=== PATIENT | female | born 1940 | race Caucasian/White ===

== ENCOUNTER 2016-08-24 11:27 | Inpatient (IN) | payer MEDICARE, OTHER, MEDICAID ==
[~2016-08-24] VITALS: Ht 165.1 cm; Wt 66.8 kg
--- NOTE | ~2016-08-24 | CO ---
ADMIT: 08/24/2016 RM/LOC: 432 [facility] MR#: [id number] [address] [place], [place] [address] ANGEL ADRIAN M [address] [place] [address] Consultation Report SEX: F AGE: 75 : 1940 DATE OF CONSULTATION: 09/15/2016 ATTENDING PHYSICIAN: Li Son MD CONSULTING PHYSICIAN: Destin Damon MD ADDENDUM: You can see full dictated consult by Edilson Hooper, my PA. She is a pleasant 75-year-old female, who actually was admitted I think more for some respiratory type issues, but over the last few days, has had some nausea and dry heaves. 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 History of G- tube in place for chronic nourishment, esophageal strictures in the past that have required dilation. At this point, we were asked to see her for an EGD. Have discussed that all with her, she understands and has had multiple EGDs and wishes to proceed. Her exam otherwise shows her abdomen is soft, minimal diffuse tenderness. G-tube intact, looks fine without any issues or problems. ASSESSMENT AND PLAN: At this time, she will undergo an EGD by myself or one of the partners as I will be out of town in the morning, depends on who can get to it and when. Destin Damon MD/ dorinal JOB #: [id number] CC: Li Son MD, Attending Physician Li Son MD, Family Physician
[~2016-08-24 11:27] MED LIST: CYMBALTA60 MG PO; FIBER625 MG PO; LISINOPRIL20 MG PO; NEURONTIN300 MG PO; NORMAL SALINE FL5 ML IV; NORVASC2.5 MG PO; OCEAN NASAL MIS45 ML NS; PRILOSEC OTC20 MG PO; REGLAN10 MG PO; SENOKOT S1 TAB PO; SODIUM CHLORID250 ML IV
--- NOTE | 2016-09-18 09:57 | OR ---
ADMIT: 08/24/2016 RM/LOC: 432 [facility]#: [id number] [id number] [address] [facility] [address] [place] [address] ANGEL ADRIAN M [address] [place] [address] Operative/Delivery Room Report SEX: F AGE: 75 : 1940 SURGERY DATE: 09/16/2016 SURGEON: Romulo López MD PREOPERATIVE DIAGNOSIS: Dysphagia with esophageal stricture. POSTOPERATIVE DIAGNOSIS: Esophagogastrostomy, anastomotic stricture. PROCEDURE: Esophagogastroduodenoscopy with 15 mm balloon dilatation of the anastomotic stricture. ANESTHESIA: IV general. DESCRIPTION OF PROCEDURE: The patient was taken to the endoscopy suite and placed left side down on her hospital cart. IV sedation was established. The upper endoscope was advanced through the oropharynx into the esophagus without difficulty. The scope was pushed to the distal esophagus, where the anastomosis was visualized. There was significant narrowing at this level. I was able to gently advance the scope across the anastomosis into the gastric remnant. The duodenum was also advanced to and inspected and appeared normal. The gastrostomy tube balloon was in place in the stomach. The scope was withdrawn to the anastomosis. A dilating balloon was advanced across the strictured area and insufflated to 880 m, Which provided an 18 mm dilation. The balloon was held in place for 1 minute and deflated. On inspection, there was no evidence of perforation with wider patency of the stricture. The scope and balloon were withdrawn. The remainder of the esophageal mucosa appeared normal. The patient tolerated the procedure well and transferred to the recovery area in stable condition. Romulo López MD/ danita JOB #: [id number] CC: Li Son MD, Attending Physician Li Son MD, Family Physician
[2016-09-18] MEDS ORDERED: CARVEDILOL25 MG PO (14:09)
[2016-09-18] MEDS ORDERED: CYMBALTA30 MG PO (14:09)
[2016-09-18] MEDS ORDERED: CATAPRES-DPS0.1 MG PO (14:09)
[2016-09-18] MEDS ORDERED: NEURONTIN100 MG PO (14:10)
[2016-09-18] MEDS ORDERED: NEURONTIN DPS100 MG PO (14:10)
[2016-09-18] MEDS ORDERED: REMERON30 M1 PO (14:11)
[2016-09-18] MEDS ORDERED: PEPCID DPS20 MG PO (14:12)
[2016-09-18] MEDS ORDERED: NORVASC5 MG PO (14:12)
[2016-09-18] MEDS ORDERED: PROVENTIL2.5 MG/3 M IH (14:12)
[2016-09-18] MEDS ORDERED: PERCOCET 5-3251 EACH PO (14:13)
[2016-09-18] MEDS ORDERED: LORAZEPAM0.5 MG PO (14:13)
[2016-09-18] MEDS ORDERED: ZYRTEC DPS10 MG PO (14:14)
[2016-09-18] MEDS ORDERED: ZOFRAN ODT8 MG PO (14:14)
[2016-09-18] MEDS ORDERED: REGLAN10 MG PO (14:14)
[2016-09-18] MEDS ORDERED: TYLENOL325 MG PO (14:15)
[2016-09-18] MEDS ORDERED: VITAMIN D50000 UNIT PO (14:16)
[2016-09-18] MEDS ORDERED: WELCHOL625 MG PO (14:16)
[2016-09-18] MEDS ORDERED: FUROSEMIDE20 MG PO (14:16)
[2016-09-18] MEDS ORDERED: HYOSCYAMIN0.125 MG/M SL (14:17)
[2016-09-18] MEDS ORDERED: IMODIUM DPS2 MG PO (14:17)
--- NOTE | 2016-10-12 01:12 | DS ---
ADMIT: 08/24/2016 RM/LOC: 432 [facility] MR#: [id number] [address] [facility] [address] [place], [place] [address] JAZMIN ADRIAN [address] [place] [address] Discharge Summary SEX: F AGE: 75 : 1940 ADMISSION DATE: 08/24/2016 DISCHARGE DATE: 09/17/2016 DIAGNOSES: 1. Influenza A. 2. Hypertension. 3. Esophageal stricture. 4. Neuropathic pain syndrome-abdominal. 5. Gastroesophageal reflux disease. 6. Malnutrition with jejunostomy in place. 7. Depression. 8. Diabetes. 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 10.Weakness. 11.Diarrhea. 12.Renal insufficiency. 13.Hyperkalemia. 14.Thrombocytopenia with platelets of 79 today. 15.Anemia of chronic disease. 16.Bilateral pneumonia, NOS (not otherwise specified). 17.Nausea. 18.Delirium-transient. CONSULT: Surgery. PROCEDURE: EGD with dilation 09/16/2016. LABORATORY AND X-RAY DATA: Sodium 146 down to 140, potassium 4.8 up to 5.9, final value was 5.5, chloride 108, CO2 is 26, BUN 47, creatinine 2.2, which is pretty stable for her. Sugars are variable, see chart. Total bilirubin was 0.5, total protein 4.9, albumin 2.3, alkaline phosphatase 63, AST 13. Sugars are variable, see chart. White count 8.4, hemoglobin 10.3, platelet count on admission 270, hovered around those numbers and then on 09/12/2016 decreased to 96 with final value of 79. Chest x-ray showed new prominent patchy interstitial markings throughout both lungs consistent with probable pneumonia and a possible edema component. Follow up chest x-rays similar. Final chest x-ray was negative with improved aeration. COURSE IN HOSPITAL: Jazmin was admitted from the clinic pretty miserable. She was found to have an acute episode of influenza A. She was admitted, placed in isolation, given fluids and started on Tamiflu. She was quite weak. Therapy was started to try and keep her strong enough to return home once she improved. We did continue her Jevity. Her blood pressure was a little elevated. As needed clonidine was ordered. Renal function was noted to be diminished but this was stable for her. We continued with the Tamiflu for the five day course. She had been getting her tube feedings but those were actually held intermittently because of nausea and it began to develop. Much like her old issues. Her cough continued and seemed to progress. Concern about a post influenza pneumonia was entertained. We did start some Rocephin ADMIT: 08/24/2016 RM/LOC: 432 [facility] MR#: [id number] [address] [address] JAZMIN ADRIAN [address] [place] [address] Discharge Summary SEX: F AGE: 75 : 1940 and Solu-Medrol for her bronchospasm. This did improve things quite a bit. We are getting close to being able to dismiss. Then she started to have abdominal pain with cramping and diarrhea. Welchol was added to help with her diarrhea but also was beneficial for her diabetes and her cholesterol issues. This did seem to help a little bit. Her Solu-Medrol was decreased. She continued with the therapies. We started up on low-dose aspirin. With the progression, she began having increasing difficulties. Could not keep any of her medications down. We stopped the Rocephin, changed it to Levaquin because her cough remained quite loose. Had all of her medications adjusted and decreased his Cymbalta and Neurontin just a slight amount to see if that would help as sometimes it needs to be done. We kept her on Pepcid for her reflux type symptoms. Nausea was a little bit better. Then she started having more abdominal pain. We did have Surgery come by and see her. We hope not to have to do any surgical interventions. We did do some bowel rest. After she seemed to be doing a little bit better restarted tube feedings. I did go ahead and have her have an EGD since her last one was a long enough time ago. We did and an EGD was performed and she was found to have a stricture. This was dilated. I wonder if this is part of the abdominal pain and the belching and the production of a lot of sputum. Hopefully things will improve. On today's rounds, she was anxious to go home. She has not been up that much and she is still pretty weak. We will have her go to [facility] if there is a bed. She was finally at a point where she was felt able to go home but will need close followup. I am a little concerned about her going home since she really has not been up and has been refusing therapy of late. For this reason, we will see how she does this morning and if she does okay she could go home with home health but I doubt that is an option. Instead, she will probably go home later this afternoon to [facility] for temporary placement for strengthening. DISCHARGE MEDICATIONS: Discharge medications include: 1. Jevity 1.2 at 50 mL an hour with flushes. 2. Clonidine 0.1 b.i.d. 3. Coreg 25 b.i.d. 4. Cymbalta 30 mg at bedtime. 5. Neurontin 100 in the morning and two in the evening. 6. Norvasc 5 mg daily. 7. Pepcid 20 p.o. b.i.d. 8. Remeron 30 mg at bedtime. 9. Proventil MDI q.i.d. for 3 days and then q.6h p.r.n. 10.Tylenol 650 q.4h p.r.n. ADMIT: 08/24/2016 RM/LOC: 432 [facility] MR#: [id number] [address] [place] [address] [address] [place], [place] [address] JAZMIN ADRIAN M [address] [place] [address] Discharge Summary SEX: F AGE: 75 : 1940 11.Zyrtec 10 mg daily p.r.n. 12.Welchol 625 daily p.r.n. 13.Vitamin D2 50,000 international units weekly. 14.Lasix 20 mg daily. 15.NuLev 0.125 q.4h p.r.n. 16.Lomotil 2 mg t.i.d. p.r.n. 17.Percocet 5/325 one q.4h p.r.n. 18.Zofran 8 mg q6h p.r.n. DISCHARGE INSTRUCTIONS: She will see me in 2-3 weeks. Otherwise, she will do with physical therapy, etc. I am hopeful she will do well and be able to return home. Overall prognosis is good. Time spent 55 minutes. Li Son MD/ vdg JOB #: [id number] CC: Li Son MD, Attending Physician Li Son MD, Family Physician
--- NOTE | 2016-10-17 12:05 | CO ---
ADMIT: 08/24/2016 RM/LOC: 432 [facility] MR#: [id number] 2620 [facility] [address] [place], [place] [address] JAZMIN ADRIAN [address] [place] [address] Consultation SEX: F AGE: 75 : 1940 DATE OF CONSULTATION: 09/15/2016 ATTENDING PHYSICIAN: Li Son MD CONSULTING PHYSICIAN: Destin Damon MD REASON FOR CONSULTATION: Nausea. HISTORY OF PRESENT ILLNESS: Jazmin is a very pleasant 75-year-old female, who has been admitted to the hospital for upper respiratory infection, who just in the last few days has developed some nausea with dry heaves. She does have a history of GIST, status post resection, and has had numerous EGDs in the past. She currently denies any emesis, hematemesis, dark or bloody stools, diarrhea or constipation or abdominal pain. She does have a G-tube in place for nourishment. She has had esophageal strictures in the past requiring dilatation at the resection site. PAST MEDICAL HISTORY: Significant for: 1. Hiatal hernia. 2. Hypertension. 3. Type 2 diabetes. 4. Mitral regurgitation. 5. Depression. 6. Malnutrition. PAST SURGICAL HISTORY: Please see above. ALLERGIES: TAPE, MORPHINE, CODEINE, AND SULFA. MEDICATIONS: Well documented in chart. FAMILY HISTORY: Noncontributory. SOCIAL HISTORY: The patient denies any tobacco, alcohol, or illicit drug use. REVIEW OF SYSTEMS: CONSTITUTIONAL: The patient denies any fever, chills, or night sweats. The rest of a comprehensive 10-point review of systems was performed and all other systems are negative. PHYSICAL EXAMINATION: GENERAL: The patient is in no acute distress. However, she is ill appearing. HEENT: Head is normocephalic and atraumatic. EOMS are intact. Conjunctivae free of icterus, erythema, or pallor. Pinnae, free of deformities. Nose, midline. No tracheal deviation. NECK: Supple. SKIN: Negative for jaundice, clubbing, edema, pallor, cyanosis. LUNGS: Normal respiratory effort. HEART: Distal pulses intact. Regular rate and rhythm. ABDOMEN: Soft, nondistended, mildly tender. G-tube intact with G-tube site ADMIT: 08/24/2016 RM/LOC: 432 [facility] MR#: [id number] [address] [address] JAZMIN ADRIAN [address] [place] [address] Consultation SEX: F AGE: 75 : 1940 free of any drainage or bleeding. Currently receiving tube feeds. ASSESSMENT: Nausea. PLAN: The plan is to have the patient undergo EGD performed by Dr. Damon or one of the other providers tomorrow as Dr. Damon is out of town in the morning. I discussed the risks, alternatives, benefits, and complications of EGD with the patient and her relative who is present during my whole assessment. They are in agreement of this plan, had all their questions answered, and would like to proceed. I will get her on the schedule consented and will go from there. Thanks for the consultation of this patient. JIMMY Farrell / Destin Damon MD / danita JOB #: [id number] CC: Li Son MD, Attending Physician Li Son MD, Family Physician
== END 2016-09-17 14:33 | DRG 194 ==
LOC: WOR 11:27 → 4PCU 11:27 → 3ICU 11:27 → WOR 12:16 → 3ICU 14:24 → 4PCU 08-25 08:49
PROVIDERS: ADMIT Internal Medicine
PROC: 0D2DXUZ Change Feeding Device in Lower Intestinal Tract, External Approach (ICD-10-PCS; 2016-08-27)
PROC: 0D738ZZ Dilation of Lower Esophagus, Via Natural or Artificial Opening Endoscopic (ICD-10-PCS; principal; 2016-09-16)
DX: J10.00 Influenza due to other identified influenza virus with unspecified type of pneumonia (principal); N17.9 Acute kidney failure, unspecified; E44.0 Moderate protein-calorie malnutrition; F05 Delirium due to known physiological condition; E11.40 Type 2 diabetes mellitus with diabetic neuropathy, unspecified; K31.84 Gastroparesis; E11.22 Type 2 diabetes mellitus with diabetic chronic kidney disease; D69.6 Thrombocytopenia, unspecified; K94.23 Gastrostomy malfunction; K91.89 Other postprocedural complications and disorders of digestive system; J10.89 Influenza due to other identified influenza virus with other manifestations; E86.0 Dehydration; E87.5 Hyperkalemia; K22.2 Esophageal obstruction; T85.858A Stenosis due to other internal prosthetic devices, implants and grafts, initial encounter; I12.9 Hypertensive chronic kidney disease with stage 1 through stage 4 chronic kidney disease, or unspecified chronic kidney disease; N18.9 Chronic kidney disease, unspecified; D63.8 Anemia in other chronic diseases classified elsewhere; E11.43 Type 2 diabetes mellitus with diabetic autonomic (poly)neuropathy; E55.9 Vitamin D deficiency, unspecified; I27.2 Other secondary pulmonary hypertension; K21.9 Gastro-esophageal reflux disease without esophagitis; E78.00 Pure hypercholesterolemia, unspecified; R32 Unspecified urinary incontinence; K44.9 Diaphragmatic hernia without obstruction or gangrene; I34.0 Nonrheumatic mitral (valve) insufficiency; F32.9 Major depressive disorder, single episode, unspecified; Z96.659 Presence of unspecified artificial knee joint; Z85.01 Personal history of malignant neoplasm of esophagus

== ENCOUNTER → 2016-09-29 | Outpatient (CLI) | payer MEDICARE, OTHER, MEDICAID ==
[~2016-09-29] MED LIST changes: +CARVEDILOL25 MG PO; +CATAPRES-DPS0.1 MG PO; +CYMBALTA30 MG PO; +FUROSEMIDE20 MG PO; +HYOSCYAMIN0.125 MG/M SL; +IMODIUM DPS2 MG PO; +LORAZEPAM0.5 MG PO; +NEURONTIN DPS100 MG PO; +NEURONTIN100 MG PO; +NORVASC5 MG PO; +PEPCID DPS20 MG PO; +PERCOCET 5-3251 EACH PO; +PROVENTIL2.5 MG/3 M IH; +REMERON30 M1 PO; +TYLENOL325 MG PO; +VITAMIN D50000 UNIT PO; +WELCHOL625 MG PO; +ZOFRAN ODT8 MG PO; +ZYRTEC DPS10 MG PO
== END | disposition home or self-care (01) ==
LOC: RAD.S 14:14
PROC: 0D20XUZ Change Feeding Device in Upper Intestinal Tract, External Approach (ICD-10-PCS; principal; 2016-09-29)
DX: R13.10 Dysphagia, unspecified (principal)

== ENCOUNTER 2016-09-30 16:06 | Emergency (ER) | payer MEDICARE, OTHER, MEDICAID ==
--- NOTE | 2016-10-07 14:34 | ER ---
ADMIT: 09/30/2016 RM/LOC: ER [facility] MR#: [id number] [address] [address] [place] [address] Emergency Room Report SEX: F AGE: 75 : 1940 DATE: 09/30/2016 ADDENDUM: This patient comes to the ER because she had her G-tube changed yesterday and since then has had abdominal pain. However, when she gets to the ER, she no longer has abdominal pain and is complaining that she is hungry. On exam, her abdomen is soft. I see no abnormal redness or drainage around her G-tube site. Her BUN was 50, glucose 130, and creatinine 3.0. I did look at her past creatinines and there have been some that were that high. She was given a liter of bolus and we did feed her and she kept food down without any difficulty. I spoke with Dr. Son and we will return her to the prison with new orders by Dr. Son as to increase her feedings to start at 10 mL an hour, after tolerates for 8 hours, increase every 8 hours by 10 mL until patient is back to her usual dose. Continue with all her regular medications. DIAGNOSIS: Vomiting. Please see my sheet. JIMMY Hurley / Edilson Moyer MD / modl JOB #: [id number] CC: Edilson Moyer MD, Attending Physician Li Son MD, Family Physician
== END 2016-09-30 20:00 | disposition home or self-care (01) ==
LOC: ER 16:06
DX: R11.10 Vomiting, unspecified (principal); E11.9 Type 2 diabetes mellitus without complications; I10 Essential (primary) hypertension; Z90.710 Acquired absence of both cervix and uterus

== ENCOUNTER → 2016-11-04 | Outpatient (CLI) | payer MEDICARE, OTHER, MEDICAID | END | disposition home or self-care (01) | LOC: RAD.S 11:15 | PROC: 0D2DXUZ Change Feeding Device in Lower Intestinal Tract, External Approach (ICD-10-PCS; principal; 2016-11-04) | DX: Z46.59 Encounter for fitting and adjustment of other gastrointestinal appliance and device (principal); C15.9 Malignant neoplasm of esophagus, unspecified ==

== ENCOUNTER 2016-11-29 10:03 | Emergency (ER) | payer MEDICARE, OTHER, MEDICAID ==
--- NOTE | 2016-12-12 08:19 | ER ---
ADMIT: 11/29/2016 RM/LOC: [facility] MR#: [id number] [address] [address] ANGEL ADRIAN M [address] [place] [address] Emergency Room Report SEX: F AGE: 75 : 1940 DATE: 11/29/2016 ADDENDUM: CHIEF COMPLAINT: J-tube fell out. HISTORY OF PRESENT ILLNESS: This is a 75-year-old female who uses J-tube only for hydration. She is still able to eat and drink. She just supplements water in order to keep herself hydrated. Since the J-tube, we were unable to replace it here in the emergency room, I have set up for [facility] to replace tomorrow. PAST MEDICAL HISTORY: Hypertension, stomach cancer, hysterectomy, cholecystectomy, does have this feeding tube. MEDICATIONS: The patient does not know at this time. She is from [place], pharmacies will be contacted. ALLERGIES: TO SULFA. SOCIAL HISTORY: Denies any tobacco, drug, or alcohol use. FAMILY HISTORY: Noncontributory. REVIEW OF SYSTEMS: CONSTITUTIONAL: Denies any fevers, chills, or sweats. CARDIOVASCULAR/RESPIRATORY: Denies any chest pain or shortness of breath. GI AND : Denies any nausea, vomiting, or diarrhea. She says she is still able the eat without any difficulty. All systems otherwise negative. PHYSICAL EXAMINATION: VITAL SIGNS: Blood pressure is 180/79, pulse 72, respirations 20, temperature is 98 tympanic, saturation of oxygen 98% on room air. GENERAL APPEARANCE: She is in no acute distress and alert. HEART: Regular rate and rhythm. ADMIT: 11/29/2016 RM/LOC: [facility] MR#: [id number] [address] [place], [place] [id number] [place] [address] ANGEL ADRIAN [address] [place] [address] Emergency Room Report SEX: F AGE: 75 : 1940 LUNGS: CTA bilateral. ABDOMEN: Soft, nontender. I am able to visualize the J-tube placement. It is not erythemic, swollen, or red. SKIN: Normal color, warm, and dry. No rashes noted. Again I am setting up for IR to replace this week. Hopefully they will be able to do it in a couple days, Wednesday. She is to return to the ER if she feels like she is becoming dehydrated in the meantime for IV fluids. At this time, she does not think she needs an IV. CLINICAL IMPRESSION: J-tube out. DISPOSITION: Stable at discharge. JIMMY Campbell / Edislon Moyer MD / dorinal JOB #: [id number] CC: Edilson Moyer MD, Attending Physician
== END 2016-11-29 11:00 | disposition home or self-care (01) ==
LOC: ER 10:03
DX: Z43.4 Encounter for attention to other artificial openings of digestive tract (principal); I10 Essential (primary) hypertension; Z90.49 Acquired absence of other specified parts of digestive tract; Z85.028 Personal history of other malignant neoplasm of stomach; Z88.2 Allergy status to sulfonamides

== ENCOUNTER → 2016-11-30 | Outpatient (CLI) | payer MEDICARE, OTHER, MEDICAID | END | disposition home or self-care (01) | LOC: RAD.S 11:00 | PROC: 0D2DXUZ Change Feeding Device in Lower Intestinal Tract, External Approach (ICD-10-PCS; principal; 2016-11-30) | DX: K94.23 Gastrostomy malfunction (principal) ==